=== PATIENT | female | born 1990 | race Caucasian/White ===

== ENCOUNTER 2016-06-13 07:23 | Inpatient (IN) | payer BC, OTHER ==
[~2016-06-13] VITALS: Ht 160 cm; Wt 54.4 kg
[2016-06-13 11:32] VITALS: BP 110/68
--- NOTE | 2016-06-13 12:00 | NUR ---
ADMISSION Admitted a 25 year old female from [place], patient arrived to unit at 1100, body search conducted by female PHOTOGRAM[employer]RY [employer], no contraband found, skin assessment completed, noted with multiple scratch miller on face, has track miller on bilateral arms, also noted with small bruise on left forearm and small bruise on left thigh. Picture taken of face multiple scratch miller and placed in chart. Patient was oriented to unit and to room, educated regarding call light use with good verbal understanding. safety measures in place. Patient did not bring any home medications and denies taking any prescription medications. Reports no allergies to drug or food. Patient reports substance use of: 1. heroin IV 1 gram daily for one month, patient reports has been using heroin for one month, last used 1 gram 06/11/2016. 2. Methamphetamine IV 1 gram daily for one month, patient reports has been using methamphetamine since the age of 22, last used 1 gram on 06/11/2016. 3. Marijuana, reports occasionally smokes marijuana unknown amount since the age of 22, per patient cannot recall last time she smoked marijuana. Patient reports past medical history of: DX: schizophrenia per patient was diagnosed at the age of 14, but does not take any medications for schizophrenia. DX: Bipolar disorder per patient was diagnosed at the age of 14 but does not take any medications for bipolar d/o. Patient also reported to commit suicide at the age of 19 reports she took many pills currently denies any suicide ideations, thoughts or plans. Per patient wants to become sober and "get my life back" Patient reports she does not have a psychiatrist or psychologist or primary care physician. Reports last time she saw a psychiatrist was at her previous treatment center, but cannot recall if she was prescribed any medications for diagnosed d/o. Patient reports treatment history of: [facility] in [place] for one month in June 2015, [facility] in [place] for one month from july-August 2015 and [facility] in [place] for six months from September-February 2016, patient reports she was sober for 4 months, and relapsed one month ago. Patient reports family substance abuse of: uncle was an "alcoholic" Patient vital signs upon admission: bp: 110/68 p: 71 t: 98.0 r: 16 o2 sat: 99% room air. Patient presenting with: dilated pupils and c/o chills with cow score of: 2. Is alert and oriented x4, noted labile. requires frequent reassurance. Patients pupils are equal and reactive to light, 3mm. Patients abdomen is soft and non distended. no episodes of N/V/D noted, bowel sounds heard in all quadrants. respirations are even and unlabored, no sob, lungs clear upon auscultation. safety measures in lace. call light with in reach, denies any history of seizures. patient was seen and examined by Dr. greene with admitting orders, will continue under close observation and will monitor closely s/sx of withdrawal. Dr. Pineda was notified of admission, and will see assess patient, will continue to monitor.
[2016-06-13] MEDS ORDERED: MAGNESIUM HYDROXIDE 30 ML LIQUID UDC PO PRN (12:30)
[2016-06-13] MEDS ORDERED: BUPRENORPHINE HCL 2 MG TAB.SUBL SL PRN (12:30)
[2016-06-13] MEDS ORDERED: MAG HYDROX/AL HYDROX/SIMETH 30 ML LIQUID UDC PO PRN (12:30)
[2016-06-13] MEDS ORDERED: ONDANSETRON 4 MG/2 ML VIAL IM PRN (12:30)
[2016-06-13] MEDS ORDERED: ACETAMINOPHEN 325 MG TABLET PO PRN (12:30)
[2016-06-13] MEDS ORDERED: diphenhydrAMINE 50 MG CAPSULE PO PRN (12:30)
[2016-06-13] MEDS ORDERED: LOPERAMIDE HCL 2 MG CAPSULE PO PRN ×2 (12:30)
[2016-06-13] MEDS ORDERED: CLONIDINE HCL 0.1 MG TABLET PO PRN (12:30)
[2016-06-13] MEDS ORDERED: MIRALAX 17 GM POWD.PACK PO PRN (12:30)
[2016-06-13] MEDS ORDERED: ONDANSETRON ODT 4 MG TAB.RAPDIS SL PRN (12:30)
[2016-06-13] MEDS ORDERED: DICYCLOMINE HCL 20 MG TABLET PO PRN (12:30)
[2016-06-13 13:46] VITALS: BP 103/62
[2016-06-13 13:46] LABS: *URINE HCG, QUAL NEG (NEGATIVE)
[2016-06-13 14:01] LABS: *AMPHETAMINE, URINE POSITIVE (NEGATIVE); *BARBITURATE, URINE NEGATIVE (NEGATIVE); *CANNABINOID, URINE POSITIVE (NEGATIVE); *COCCAINE, URINE NEGATIVE (NEGATIVE); *OPIATE, URINE POSITIVE (NEGATIVE); *PHENCYCLIDINE SCREEN,URINE NEGATIVE (NEGATIVE)
[2016-06-13] MEDS: IBUPROFEN 600 MG TABLET PO PRN (14:22)
[2016-06-13] MEDS: HYDROXYZINE PAMOATE 25 MG CAPSULE PO PRN (14:22)
--- NOTE | 2016-06-13 14:22 | NUR ---
PRN VISTARIL/MOTRIN Patient c/o ear ache to bilateral ears 08/14 administered Motrin as ordered, will monitor effectiveness. patient c/o increase in anxiety, provided with non pharmacological intervention with no relief, administered Vistaril as ordered, will monitor effectiveness of medication
[2016-06-13 14:52] LABS: ALANINE AMINOTRANSFERASE 44 U/L (14-59); ALBUMIN 3.1 g/dL (3.4-5.0); ALKALINE PHOSPHATASE 78 U/L (50-136); ASPARTATE AMINOTRANSFERASE 31 U/L (15-37); BASOPHILS % (AUTO) 0.3 % (0.0-2.0); BILIRUBIN,TOTAL 0.3 mg/dL (0.2-1.0); CALCIUM 8.4 mg/dL (8.5-10.1); CARBON DIOXIDE 28 mmol/L (21-32); CHLORIDE 106 mmol/L (98-107); CREATININE 0.9 mg/dL (0.6-1.3); EOSINOPHILS # (AUTO) 0.1 K/uL (0.0-0.7); EOSINOPHILS % (AUTO) 1.1 % (0.0-7.0); GFR 77 mL/min (>60); GLUCOSE 119 mg/dL (74-106); HEMATOCRIT 39.5 % (37.0-47.0); HEMOGLOBIN 13.6 g/dL (12.0-16.0); LYMPHOCYTES # (AUTO) 1.7 K/uL (0.8-4.8); LYMPHOCYTES % (AUTO) 26.1 % (20.5-51.5); MEAN CORPUSCULAR HEMOGLOBIN 28.6 uug (27.0-31.0); MEAN CORPUSCULAR HGB CONC 34 g/dL (32.0-37.0); MEAN CORPUSCULAR VOLUME 83.2 fL (81.0-99.0); MONOCYTES # (AUTO) 0.9 K/uL (0.1-1.30); MONOCYTES % (AUTO) 14.4 % (0.0-11.0); NEUTROPHILS # (AUTO) 3.9 K/uL (1.8-8.9); NEUTROPHILS % (AUTO) 58.1 % (38.5-71.5); PLATELET COUNT (AUTO) 242 K/uL (150-450); RED BLOOD CELL COUNT(AUTO) 4.75 MIL/uL (4.20-5.40); RED CELL DISTRIBUTION WIDTH 13.4 % (11.5-14.5); SODIUM SERUM 144 mmol/L (136-145); TOTAL PROTEIN, SERUM 6.7 g/dL (6.4-8.2); UREA NITROGEN, BLOOD 6 mg/dL (7-18); WHITE BLOOD COUNT (AUTO) 6.6 K/uL (4.0-11.2)
[2016-06-13 15:05] LABS: ETHANOL < 3 MG/DL (0-0)
[2016-06-13] MEDS ORDERED: POTASSIUM CHLORIDE 20 MEQ TAB.PRT.SR PO ONE (15:15)
--- NOTE | 2016-06-13 15:22 | NUR ---
MOTRIN/VISTARIL REASSESSMENT Patient reports Motrin effective decrease in pain, current pain level 2/10, tolerable as per patient. Vistaril effective patient reports feeling less anxious, will continue ot monitor closely.
[2016-06-13 15:57] LABS: HIV-1 p24 ANTIGEN NON REACTIVE (NONREACTIVE); HIV-1/2 ANTIBODY NON REACTIVE (NONREACTIVE)
[2016-06-13 16:55] VITALS: BP 112/70
--- NOTE | 2016-06-13 16:56 | NUR ---
PRN SUBUTEX Patient presented with: observable moist, yawning, dilated pupils, mild bone and joint aches, moist eyes, mild anxiety and goosebump with cow score of: 12, administered Subutex 4mg sl as ordered, will monitor effectiveness.
--- NOTE | 2016-06-13 17:26 | NUR ---
SUBUTEX REASSESSMENT Patient presented with decrease in cow score from 12 to 10, presenting with: c/o chills, dilated pupils, mild bone and joint aches, moist eyes, mild anxiety, and goosebump with cow score of: 10. will continue to monitor. MD notified PRN Subutex was administered.
--- NOTE | 2016-06-13 19:16 | NUR ---
END OF SHIFT Patient alert and oriented x4, Patients vital signs were with in normal limits during shift. Patient with admitting Dx: opiate/methamphetamine dependence and continues under close observation currently with no ongoing taper continues on PRN medications for s/sx of withdrawal. Administered one time dose of Subutex 4mg sl at 1656 for cow score of: 12. Also administered PRN Motrin and PRN Vistaril as ordered, medications were effective. 1300 assessment patient presented c/o chills, difficulty sitting still, dilated pupils, mild bone and joint aches, moist eyes, mild anxiety and goosebump with cow score of: 10; 1700 assessment patient presented with: observable moist on face, yawning, difficulty sitting still, dilated pupils, mild bone and joint aches, moist eyes, mild anxiety and goosebump with cow score of: 12. Patient encouraged adequate PO fluid intake as tolerated. Encouraged to attend group therapies/sessions to learn new coping skills to prevent relapse, Denies SI/HI. Safety measures in place. call light kept with in reach, will continue to monitor closely. Patient endorsed to second shift supervisor nurse, all pertinent information discussed.
[2016-06-13 20:00] VITALS: BP 107/48
[2016-06-13] MEDS ORDERED: BUPRENORPHINE HCL 2 MG TAB.SUBL SL SCH (20:00)
--- NOTE | 2016-06-13 20:00 | NUR ---
Start of Shift Patient is a 25-year old, female, admitted for Heroin Dependence. For the last month, patent reports using 1 gram of tar heroin via IV daily. Pt also reports using meth salts, cannabis and binge drinks ETOH intermittently. No history of seizures reported. Pt is AAOx4 and noted to be emotional with bouts of crying. Provided teachings and reassurance. No SOB noted. With facial scabs due to scratching per pt. no bleeding noted. Provided skin care. Pt is ambulatory with steady gait. Fall, universal and safety prec implemented. Call light within reach. Kept pt warm, dry and comfortable. Latest COWS=9. Will monitor.
[2016-06-13] MEDS: LACTOBACILLUS RHAMNOSUS GG 1 EACH CAPSULE PO SCH (20:57)
[2016-06-13] MEDS: AMOXICILLIN TRIHYDRATE 500 MG CAPSULE PO SCH (21:01)
[2016-06-14] VITALS: BP 99/50
[2016-06-14 04:00] VITALS: BP 104/56
[2016-06-14] MEDS: AMOXICILLIN TRIHYDRATE 500 MG CAPSULE PO SCH ×3 (06:35→21:14)
--- NOTE | 2016-06-14 07:05 | NUR ---
End of Shift Patient is a 25-year old, female, admitted for Heroin Dependence. For the last month, patent reports using 1 gram of tar heroin via IV daily. Pt also reports using meth salts, cannabis and binge drinks ETOH intermittently. No history of seizures reported. Pt is AAOx4 and noted to be emotional with bouts of crying. Provided teachings and reassurance. No SOB noted. With facial scabs due to scratching per pt. no bleeding noted. Provided skin care. Pt is ambulatory with steady gait. Fall, universal and safety prec implemented. Call light within reach. Kept pt warm, dry and comfortable. Latest COWS=9, slept for 10 hours. Endorsed to AM shift nurse for continuity of care.
[2016-06-14 08:00] VITALS: BP 108/80
--- NOTE | 2016-06-14 08:00 | NUR ---
START OF SHIFT NOTE Received report from night nurse. 25 year old female admitted for heroin, methamphetamine, and marijuana. Pt reports past medical hx of bipolar d/o, schizophrenia, and suicide attempt at age 19. Pt has hx of multiple detox. Pt placed on 5 day Subutex taper. Pt has scratch miller on her face. Skin intact to the site no s/s of infection. Pt did not receive any PRN per night nurse.Last COWS 9. Pt slept for 10 hours. Upon assessment, pt reported anxiety, body aches, stomach cramps. Will provide safe and supportive environment. Safety measures in place. Call light in reach.
[2016-06-14] MEDS ORDERED: TUBERCULIN,PURIF.PROT.DERIV. 5 TU/0.1 ML TEST ID ONE (09:00)
[2016-06-14 09:06] LABS: CALCIUM 8.5 mg/dL (8.5-10.1); CREATININE 0.8 mg/dL (0.6-1.3); PHOSPHOROUS 3.7 mg/dL (2.5-4.9); POTASSIUM 3.7 mmol/L (3.5-5.1)
[2016-06-14] MEDS: MULTIVITAMINS,THERAPEUTIC TABLET PO SCH (09:06)
[2016-06-14] MEDS: LACTOBACILLUS RHAMNOSUS GG 1 EACH CAPSULE PO SCH ×2 (09:06→21:14)
[2016-06-14] MEDS: BUPRENORPHINE HCL 2 MG TAB.SUBL SL SCH ×3 (09:07→21:14)
[2016-06-14] MEDS: NEOMY/BACITRAC/POLYMI OINT 28.35 GM TUBE TOP SCH ×2 (09:07→16:47)
[2016-06-14] MEDS: NEOMY/POLYMYX B/HC OTIC SUSP 10 ML BOTTLE EACH EAR SCH ×2 (09:08→16:47)
[2016-06-14 12:00] VITALS: BP 102/60
[2016-06-14] MEDS ORDERED: MIN OIL TOP PRN (13:00)
[2016-06-14] MEDS ORDERED: GLY TOP PRN (13:00)
[2016-06-14] MEDS ORDERED: [UNRECOGNIZED DRUG - OTHER] TOP PRN (13:00)
[2016-06-14] MEDS ORDERED: WATER TOP PRN (13:00)
--- NOTE | 2016-06-14 14:26 | NUR ---
REFUSED MED Pt refused her scheduled Subutex 4 mg, cows noted 6. Offered x3 risk and benefits explained. Pt states "I am feeling better". aware. Safety measures in place, Call light within reach. Will cont to monitor.
[2016-06-14] MEDS ORDERED: MINERAL OIL/PETROLATUM,WHITE 57 GM TUBE TOP PRN (14:30)
[2016-06-14 16:00] VITALS: BP 100/55
--- NOTE | 2016-06-14 19:12 | NUR ---
END OF SHIFT NOTE Pt is alert awake oriented x4 in stable condition. Pt admitted with diagnosis of Opioid/ Methamphetamine Pt started on 5 days Subutex taper COWS noted 11, tolerated well. Pt refused her Scheduled Subutex at 1426 COWS score noted-6. Pt cont with Po antibiotic for Otitis media no s/s of adverse reaction noted. Pt also cont with Triple atb for face scratch miller. Pt did not received any PRN medication during shift. Pt preferred to stayed in her room, Educate the pt to attend groups and activities to learn new coping skills to prevent relapse with good verbal understanding. Last COWS-6. Pt's total intake of [id number] voided x2 with x2 stool. Safety measures in place, call light within reach. Pt endorsed to night nurse in stable condition.
--- NOTE | 2016-06-14 19:14 | NUR ---
Start of shift note Received report from day shift nurse. Pt is a 25 yo female, A+Ox4, presenting to [facility] for Opiate/Meth/Marijuana dependence. Pt has NKA, is Full Code status, and on Regular diet. Pt is on Fall precautions. Pt has HX of Bipolar disorder, Schizophrenia, and past Suicide attempt. Pt is on 5 day Subutex taper, tolerated well. No s/s of distress noted at this time. Respirations even and unlabored. Will continue to monitor.
[2016-06-14 20:19] VITALS: BP 116/63
[2016-06-15 00:58] VITALS: BP 112/57
[2016-06-15 04:09] VITALS: BP 112/63
[2016-06-15] MEDS: AMOXICILLIN TRIHYDRATE 500 MG CAPSULE PO SCH ×3 (06:52→21:59)
[2016-06-15] MEDS: IBUPROFEN 600 MG TABLET PO PRN (06:55)
--- NOTE | 2016-06-15 06:55 | NUR ---
PRN Motrin PT c/o ear ache and requested for PRN Motrin. Medication given and tolerated well. Will reassess within 1 HR. Will continue to monitor.
--- NOTE | 2016-06-15 07:12 | NUR ---
End of shift note Pt is a 25 yo female, A+Ox4, presenting to [facility] for Opiate/Meth/Marijuana dependence. Pt has NKA, is Full Code status, and on Regular diet. Pt is on Fall precautions. Pt has HX of Bipolar disorder, Schizophrenia, and past Suicide attempt. Pt is on 5 day Subutex taper, tolerated well. Pt slept for a total of 7 HRS. Last COWS: 3 @0400. No s/s of distress noted at this time. Respirations even and unlabored. Will endorse to day shift nurse.
[2016-06-15 07:46] LABS: CALCIUM 8.4 mg/dL (8.5-10.1); CREATININE 0.8 mg/dL (0.6-1.3); MAGNESIUM 1.9 mg/dL (1.8-2.4); PHOSPHOROUS 4.5 mg/dL (2.5-4.9); POTASSIUM 3.8 mmol/L (3.5-5.1)
--- NOTE | 2016-06-15 08:00 | NUR ---
START OF SHIFT Pt 25 y/o female admitted for opioid and methamphetamine dependence. Pt received in room on bed with eyes closed resting, but easily arousable to name. Pt alert and oriented to name, place, and time. PErrla. Skin warm and slightly moist to touch. Respirations even and unlabored. Bilateral hand tremors noted slightly. It was reported that pt slept for 7 hours last night. Bed on lowest position with side rails x2 up for safety. Call light within reach. No distress noted at this time.
[2016-06-15 08:09] LABS: THYROID STIMULATING HORMONE 4.36 mIU/mL (0.358-3.740)
[2016-06-15 09:00] VITALS: BP 106/49
[2016-06-15] MEDS ORDERED: BUPRENORPHINE HCL 2 MG TAB.SUBL SL SCH (09:00)
[2016-06-15] MEDS: NEOMY/POLYMYX B/HC OTIC SUSP 10 ML BOTTLE EACH EAR SCH ×2 (09:00→17:51)
--- NOTE | 2016-06-15 09:30 | NUR ---
LABS: PHOSPH=8.4 and TSH=4.360. Dr. Mcrae aware.
[2016-06-15] MEDS: LACTOBACILLUS RHAMNOSUS GG 1 EACH CAPSULE PO SCH ×2 (10:24→21:59)
[2016-06-15] MEDS: NEOMY/BACITRAC/POLYMI OINT 28.35 GM TUBE TOP SCH ×2 (10:24→17:51)
[2016-06-15] MEDS: MULTIVITAMINS,THERAPEUTIC TABLET PO SCH (10:24)
[2016-06-15] MEDS: ESCITALOPRAM OXALATE 10 MG TABLET PO SCH (13:13)
[2016-06-15 13:20] LABS: HCV AB <0.1 s/co ratio (0.0-0.9); HEPATITIS B CORE AB, IgM Negative (Negative); HEPATITIS B SURFACE AG Negative (Negative)
[2016-06-15] MEDS: HYDROXYZINE PAMOATE 25 MG CAPSULE PO PRN (13:24)
[2016-06-15] MEDS: BUPRENORPHINE HCL 2 MG TAB.SUBL SL SCH ×2 (14:39→21:59)
[2016-06-15] MEDS: GABAPENTIN 300 MG CAPSULE PO SCH ×2 (14:39→21:59)
[2016-06-15] MEDS: CLONIDINE HCL 0.1 MG TABLET PO SCH ×2 (14:39→21:00)
[2016-06-15] MEDS: FLUTICASONE PROP NASAL SPRAY 16 GM BOTTLE NS SCH (14:44)
[2016-06-15 16:00] VITALS: BP 100/58
--- NOTE | 2016-06-15 19:38 | NUR ---
END OF SHIFT Pt 25 y/o female admitted for opioid and methamphetamine dependence. Pt alert and oriented to name, place, and time. Perrla. Skin warm and slightly moist to touch. Respirations even and unlabored. Bilateral hand tremors noted slightly. Pt observed isolative to room all day today. Pt medication compliant and tolerated well. No ASe noted. Bed on lowest position with side rails x2 up for safety. Call light within reach. No distress noted at this time.
--- NOTE | 2016-06-15 19:50 | NUR ---
START OF SHIFT Received report from day shift nurse. Pt is lying in bed resting. She is a 25 yo female admitted to [facility] on 06/13 for opiate and methamphetamine dependence. She is A&O x4 and ambulatory. NKA, full code, and on a regular diet. She has a PMH of bipolar, schizophrenia, and suicide attempt at age 19. On admission she admitted to using heroin IV 1 gram per day for one month, methamphetamine IV 1 gram per day for one month, and marijuana occasionally. Pt started a 5 day subutex taper on 06/13. She is noted with flushed, moist skin, and dilated pupils. She reports feeling anxious and having body aches. Pt denies SI/HI. Fall precautions in place. Bed is down with call light in reach.
[2016-06-15 20:00] VITALS: BP 105/58
[2016-06-16] VITALS: BP 106/49
[2016-06-16 04:00] VITALS: BP 101/42
[2016-06-16] MEDS: AMOXICILLIN TRIHYDRATE 500 MG CAPSULE PO SCH ×3 (06:47→21:41)
--- NOTE | 2016-06-16 07:17 | NUR ---
END OF SHIFT Report provided to day shift nurse. Pt is lying in bed resting. She is a 25 yo female admitted to [facility] on 06/13 for opiate and methamphetamine dependence. She is A&O x4 and ambulatory. NKA, full code, and on a regular diet. She has a PMH of bipolar, schizophrenia, and suicide attempt at age 19. On admission she admitted to using heroin IV 1 gram per day for one month, methamphetamine IV 1 gram per day for one month, and marijuana occasionally. Subutex taper started on 06/13 is working well to manage withdrawal symptoms. She is ordered abx for an ear infection. No PRN medications administered. Last COWS was 4. She drank 850mL and slept for 8 hours. Fall precautions in place. Bed is down with call light in reach.
[2016-06-16 08:00] VITALS: BP 106/64
--- NOTE | 2016-06-16 08:00 | NUR ---
START OF SHIFT Received report from shift supervisor rn nurse. Patient is laying in bed resting. Patient is 25 year old female admitted to 06/13/16 for heroine and methamphetamine dependence. Alert and oriented x4, ambulatory with steady gait, denies SOB, chest pain, multiple healing wounds on face, with pinkish color, scabs off. Pathient is full code, NKA, regular diet. Has a history of bipolar and schizophrenia, denies SI/HI. Pt on a 5 day subutex taper. Patient's COWS at this time is 11. Patient has large pupils, reports body aches, anxiety, teary eyes, restleness and goosebumps. Scheduled subutex this AM administered. On fall precautions. Bed is down with call light in reach. Med compliant, prn Robaxin po given for 7/10 R hand pain with mild swelling noted, pt. able to move all extremities. TB read on RFA today, negative result noted.
[2016-06-16] MEDS: LACTOBACILLUS RHAMNOSUS GG 1 EACH CAPSULE PO SCH ×2 (09:13→21:41)
[2016-06-16] MEDS: ESCITALOPRAM OXALATE 10 MG TABLET PO SCH (09:13)
[2016-06-16] MEDS: BUPRENORPHINE HCL 2 MG TAB.SUBL SL SCH ×3 (09:13→21:41)
[2016-06-16] MEDS: GABAPENTIN 300 MG CAPSULE PO SCH ×3 (09:13→21:41)
[2016-06-16] MEDS: MULTIVITAMINS,THERAPEUTIC TABLET PO SCH (09:14)
[2016-06-16] MEDS: CLONIDINE HCL 0.1 MG TABLET PO SCH ×3 (09:15→21:00)
[2016-06-16] MEDS: NEOMY/BACITRAC/POLYMI OINT 28.35 GM TUBE TOP SCH ×2 (09:15→17:13)
[2016-06-16] MEDS: FLUTICASONE PROP NASAL SPRAY 16 GM BOTTLE NS SCH (09:16)
[2016-06-16] MEDS: NEOMY/POLYMYX B/HC OTIC SUSP 10 ML BOTTLE EACH EAR SCH ×2 (09:16→17:13)
[2016-06-16] MEDS: METHOCARBAMOL 750 MG TABLET PO PRN (09:36)
--- NOTE | 2016-06-16 09:36 | NUR ---
PRN ROBAXIN Patient c/o R hand pain and mild swelling, pain 7/10. Patient able to move extremities. PRN Robaxin adminsitered. Will continue to monitor patient. Will notify MD about the R hand.
--- NOTE | 2016-06-16 10:30 | NUR ---
MILTON MURPHY Patient reports pain in R hand decreased to 06/14, milton Murphy effective. Addendum: 06/16/16 at 1513 by JOSE GALICIA RN REASSESSMENT NOTE
[2016-06-16 12:00] VITALS: BP 101/56
[2016-06-16] MEDS: CARBAMIDE PEROXIDE OTIC DROP 15 ML BOTTLE EACH EAR SCH ×2 (14:41→21:40)
[2016-06-16] MEDS: BACLOFEN 10 MG TABLET PO SCH ×2 (14:53→21:41)
[2016-06-16 16:00] VITALS: BP 110/80
[2016-06-16] MEDS: IBUPROFEN 600 MG TABLET PO PRN (18:07)
--- NOTE | 2016-06-16 18:10 | NUR ---
PRN MOTRIN Patient complains of R hand pain 6/10, achy, prn motrin po provided. will continue to monitor patient.
--- NOTE | 2016-06-16 19:10 | NUR ---
REASSESSMENT Patient's pain level on R hand is now 3/10, reports decreased pain. PRN motrin is effective.
--- NOTE | 2016-06-16 19:11 | NUR ---
END OF SHIFT Patient is 25 year old female admitted to 06/13/16 for heroine and methamphetamine dependence. Alert and oriented x4, ambulatory with steady gait, denies SOB, chest pain. Has a history of bipolar and schizophrenia, denies SI/HI. Patient is full code, NKA, regular diet. Multiple healing wounds on face, with pinkish color, scabs off, photo taken and placed in chart. Pt on 5-day subutex taper. Recent COWS is 3, c/o of sweating, dilated pupils and teary eyes. Pain level is 6/10 on R hand, ibuprofen po administered, effective. BM X1. Encouraged patient to hydrate with po fluids, tolerating meals and snacks. Fall precaution in place. Bed at lowest setting. Call light within in reach. TB result read today from RFA, negative result. All needs met. machinist job setterboiler service technician will continue to monitor patient.
--- NOTE | 2016-06-16 19:50 | NUR ---
START OF SHIFT Received report from day shift nurse. Pt is lying in bed resting. She is a 25 yo female admitted to [facility] on 06/13 for opiate and methamphetamine dependence. She is A&O x4 and ambulatory. NKA, full code, and on a regular diet. She has a PMH of bipolar, schizophrenia, and suicide attempt at age 19. Pt denies SI/HI. On admission she admitted to using heroin IV 1 gram per day for one month, methamphetamine IV 1 gram per day for one month, and marijuana occasionally. She is ordered abx for ear infection and debrox for cerumen build up. Pt has healing abrasions on the face with triple antibiotic ordered.. No s/s of infection. She has nasal stuffiness, dilated pupils, and reports feeling anxious. Pt started a 5 day subutex taper on 06/13. Fall precautions in place. Bed is down with call light in reach.
[2016-06-16 20:00] VITALS: BP 109/57
[2016-06-17] VITALS: BP 111/58
--- NOTE | 2016-06-17 04:00 | NUR ---
0400 Vitals deferred Pt refused to be woken for 0400 vitals. Respirations even and unlabored. Bed is down with call light in reach.
[2016-06-17] MEDS: AMOXICILLIN TRIHYDRATE 500 MG CAPSULE PO SCH ×3 (06:58→22:04)
--- NOTE | 2016-06-17 07:20 | NUR ---
END OF SHIFT Report provided to day shift nurse. Pt is in her room getting ready for the day. She is a 25 yo female admitted to [facility] on 06/13 for opiate and methamphetamine dependence. She is A&O x4 and ambulatory. NKA, full code, and on a regular diet. She has a PMH of bipolar, schizophrenia, and suicide attempt at age 19. Pt denies SI/HI. On admission she admitted to using heroin IV 1 gram per day for one month, methamphetamine IV 1 gram per day for one month, and marijuana occasionally. Pt started a 5 day subutex taper on 06/13. No PRN medications administered. Last COWS was 4. She drank 500mL and slept for 6 hours. Fall precautions in place. Bed is down with call light in reach.
--- NOTE | 2016-06-17 07:25 | NUR ---
Start of shift note Pt was admitted for opiate dependence. Pt has a PMH of bipolar d/o, schizophrenia and SI at the age of 19. Pt is on a 5 day subutex taper. Pt is pacing her room, pt states that she didn't sleep well during the night and that she is exhausted. Will administer her medications per MD order and monitor pt. All other needs addressed at this time.
[2016-06-17 08:00] VITALS: BP 106/74
--- NOTE | 2016-06-17 08:15 | NUR ---
PRN administration Pt c/o pain 3/10 in right hand. Administered PRN motrin per MD order. Will continue to monitor pt. All other needs addressed at this time.
[2016-06-17] MEDS: NEOMY/POLYMYX B/HC OTIC SUSP 10 ML BOTTLE EACH EAR SCH ×2 (08:21→17:38)
[2016-06-17] MEDS: ESCITALOPRAM OXALATE 10 MG TABLET PO SCH (08:24)
[2016-06-17] MEDS: BACLOFEN 10 MG TABLET PO SCH (08:24)
[2016-06-17] MEDS: BUPRENORPHINE HCL 2 MG TAB.SUBL SL SCH ×2 (08:24→22:04)
[2016-06-17] MEDS: IBUPROFEN 600 MG TABLET PO PRN ×2 (08:24→22:17)
[2016-06-17] MEDS: CLONIDINE HCL 0.1 MG TABLET PO SCH ×3 (08:24→22:04)
[2016-06-17] MEDS: GABAPENTIN 300 MG CAPSULE PO SCH ×3 (08:25→22:04)
[2016-06-17] MEDS: LACTOBACILLUS RHAMNOSUS GG 1 EACH CAPSULE PO SCH ×2 (08:25→22:04)
[2016-06-17] MEDS: MULTIVITAMINS,THERAPEUTIC TABLET PO SCH (08:25)
[2016-06-17] MEDS: NEOMY/BACITRAC/POLYMI OINT 28.35 GM TUBE TOP SCH ×2 (08:25→17:38)
[2016-06-17] MEDS: FLUTICASONE PROP NASAL SPRAY 16 GM BOTTLE NS SCH (08:26)
[2016-06-17] MEDS: CARBAMIDE PEROXIDE OTIC DROP 15 ML BOTTLE EACH EAR SCH ×2 (08:26→22:06)
--- NOTE | 2016-06-17 09:15 | NUR ---
Reassessment pt states that the motrin was effective in reducing her pain to a level of 1/10. Pt states that she is comfortable. Will continue to monitor pt.
[2016-06-17 12:00] VITALS: BP 104/60
[2016-06-17] MEDS ORDERED: BACLOFEN 10 MG TABLET PO SCH (15:00)
[2016-06-17] MEDS: BACLOFEN 20 MG TABLET PO SCH ×2 (15:39→22:04)
[2016-06-17 16:00] VITALS: BP 112/58
[2016-06-17] MEDS ORDERED: TRAZODONE 50 MG TABLET PO PRN (16:15)
--- NOTE | 2016-06-17 18:42 | NUR ---
End of shift note Pt was admitted for opiate dependence. Pt has an active ear infection in which she is receiving oral atb and atb ear drops. Pt has a recent COWS of 4 at 1600. Pt is tolerating her subutex taper well without any ASE. Pt had one PRN medication during the shift to manage her pain with effectiveness. Pt attempted to participate in groups and other activities during the shift. Pt is compliant with care. All other needs addressed at this time. Will continue to monitor pt and endorse SBAR to oncoming shift.
--- NOTE | 2016-06-17 19:30 | NUR ---
START OF SHIFT NOTE: Patient is a 25 y/o female admitted on 06/13/16 for Opiate dependence. Patient reported using Heroin IV 1 gram daily for 1 month, Meth 1 gram for 1 month and smokes Marijuana occasionally. Patient with medical history of Bipolar disorder, Schizophrenia, Suicide attempt at age 19 and Ear infection. Fall precaution noted. Patient is on a regular diet with no known food and drug allergies. Full Code status. Patient is on a 5-day Subutex taper and tolerating well. Scratch miller noted on face. Last COWS is 4. Pt was given PRN Motrin during day shift. Patient is alert & oriented x4. No shortness of breath noted. Respiration even & unlabored. Abdomen soft & non-distended. Bowel sounds active in all four quadrants. Pt complains of 4/10 body aches, nausea, sweating and chills. No bilateral hand tremors noted. No hallucinations. Safety precautions are in place. Bed locked in lowest position. Both side rails up. Call light within pts reach. Will continue to monitor.
[2016-06-17 20:00] VITALS: BP 122/65
--- NOTE | 2016-06-17 22:17 | NUR ---
PRN Motrin & Zofran Patient complains of 4/10 body aches and nausea. No episode of vomiting noted. Pt noted with restlessness. PRN Motrin & Zofran given as ordered. Will continue to monitor patient.
--- NOTE | 2016-06-17 23:17 | NUR ---
PRN Reassessment Patient verbalized relief from body aches and improved nausea. PRN medication effective. Will continue to monitor patient.
[2016-06-18] VITALS: BP 103/58
[2016-06-18 04:00] VITALS: BP 102/56
[2016-06-18] MEDS: AMOXICILLIN TRIHYDRATE 500 MG CAPSULE PO SCH ×2 (06:31→14:32)
--- NOTE | 2016-06-18 07:39 | NUR ---
END OF SHIFT NOTE: Patient is a 25 y/o female admitted on 06/13/16 for Opiate dependence. Patient reported using Heroin IV 1 gram daily for 1 month, Meth 1 gram for 1 month and smokes Marijuana occasionally. Patient with medical history of Bipolar disorder, Schizophrenia, Suicide attempt at age 19 and Ear infection. Fall precaution noted. Patient is on a regular diet with no known food and drug allergies. Full Code status. Patient is on a 5-day Subutex taper and tolerating well. Scratch miller noted on face. Last COWS is 6. Pt was given PRN Motrin & Zofran during my shift. Pt is stable and vitals WNL. Pt slept for a total of 6 hours. Pt consumed 775ml of fluids. Voided 1x with no bowel movement. All needs attended & met. Safety precautions are in place. Will endorse pt to day shift nurse.
--- NOTE | 2016-06-18 07:50 | NUR ---
START OF SHIFT Rcvd client in room, she is A/O x 4, she presents with irritable mood, flat affect, she reports anxiety, fatigue, and leg restlessness, flushed face and being very emotional. Encouraged increased fluids as tolerated. Encouraged group therapy attendance. Per night warehouse selector nurse, client is a 25 year old female admitted for withdrawal from heroin. She completed 5 day Subutex taper tolerated well. Last COWS 6 @ 2000, She had PRN Motrin for gereralized body aches and Zofran for nausea noted effective. She slept 6 hrs. She reports PMH Bipolar disorder, unspecified, Schizophrenia, unspecified, History of suicide attempt, unspecified, Opioid use disorder, Stimulant use disorder, Cannabis use disorder, Alcohol use disorder, Acute otitis media on antibiotic therapy Debrox 5 drops to each ear, Trimox 500mg cap PO Q8H, tolerating well. Client denies any induced-seizure withdrawal. She is full code, regular diet, NKA. Client is on universal precautions. Side rails up/padded x 2, call light within reach, bed locked in lowest positions. Will continue with plan of care
[2016-06-18 08:00] VITALS: BP 103/64
[2016-06-18] MEDS ORDERED: BUPRENORPHINE HCL 2 MG TAB.SUBL SL SCH (09:00)
[2016-06-18] MEDS: CARBAMIDE PEROXIDE OTIC DROP 15 ML BOTTLE EACH EAR SCH ×2 (09:23→21:15)
[2016-06-18] MEDS: ESCITALOPRAM OXALATE 10 MG TABLET PO SCH (09:24)
[2016-06-18] MEDS: MULTIVITAMINS,THERAPEUTIC TABLET PO SCH (09:24)
[2016-06-18] MEDS: BACLOFEN 20 MG TABLET PO SCH ×3 (09:24→21:15)
[2016-06-18] MEDS: CLONIDINE HCL 0.1 MG TABLET PO SCH ×3 (09:24→21:16)
[2016-06-18] MEDS: LACTOBACILLUS RHAMNOSUS GG 1 EACH CAPSULE PO SCH ×2 (09:24→21:16)
[2016-06-18] MEDS: GABAPENTIN 300 MG CAPSULE PO SCH ×3 (09:25→21:15)
[2016-06-18] MEDS: NEOMY/BACITRAC/POLYMI OINT 28.35 GM TUBE TOP SCH ×2 (09:25→16:38)
[2016-06-18] MEDS: FLUTICASONE PROP NASAL SPRAY 16 GM BOTTLE NS SCH (09:26)
[2016-06-18] MEDS: NEOMY/POLYMYX B/HC OTIC SUSP 10 ML BOTTLE EACH EAR SCH ×2 (09:27→16:39)
[2016-06-18] MEDS ORDERED: TRAZODONE 100 MG TABLET PO PRN (09:45)
[2016-06-18] MEDS ORDERED: TRAZODONE 50 MG TABLET PO PRN (09:45)
[2016-06-18 12:00] VITALS: BP 99/61
[2016-06-18] MEDS ORDERED: DICY20TA28 PO (12:21)
[2016-06-18] MEDS ORDERED: ESCI10TA PO (12:21)
[2016-06-18] MEDS ORDERED: Trazodone Hcl PO (12:21)
[2016-06-18] MEDS ORDERED: HYDR-3895 PO (12:21)
[2016-06-18] MEDS ORDERED: Ibuprofen PO (12:21)
[2016-06-18] MEDS ORDERED: Gabapentin PO ×2 (12:21)
[2016-06-18] MEDS ORDERED: CLON0.1T14 PO (12:21)
[2016-06-18] MEDS ORDERED: Baclofen PO (12:21)
--- NOTE | 2016-06-18 15:10 | NUR ---
Continuation of Care Patient Received. Patient is in her room, sleeping. Breathing even and non labored. No signs of pain or discomfort noted. Patient is a 25 year old female, admitted on 06/13/16 for Opiate Dependence. Patient received a 5 day Subutex taper that has completed. Patient verbalizes no known allergies, wishes to be full code, following a regular diet, placed on fall precautions. Patients skin noted with a small abrasion to the left forehead with ongoing treatment of ATB BID. Patient also receiving ATB for Otitis media to Bilateral ears. Patient is compliant with medications and tolerating well. Patient is set for discharge tomorrow 06/19/16. All needs attended to promptly. Will continue plan of care as ordered.
--- NOTE | 2016-06-18 15:10 | NUR ---
Report given to CAMMIE Mendez who will assume care of patient. Client is in room, sound asleep, easy to arouse, RR16.
[2016-06-18 16:28] VITALS: BP 105/61
[2016-06-18 20:15] VITALS: BP 111/67
--- NOTE | 2016-06-18 23:15 | NUR ---
PRN Medication Administration Patient is verbalizing inability of falling asleep. PRN Trazodone administered. Will continue to monitor.
[2016-06-19 00:25] VITALS: BP 108/50
[2016-06-19 04:27] VITALS: BP 106/64
[2016-06-19] MEDS: METHOCARBAMOL 750 MG TABLET PO PRN (04:28)
--- NOTE | 2016-06-19 04:30 | NUR ---
PRN Medication Administration Patient verbalizing increased muscle spasms of the left hand. PRN Robaxin administered. Will continue to monitor for effectiveness of medication.
[2016-06-19] MEDS: IBUPROFEN 600 MG TABLET PO PRN (05:47)
--- NOTE | 2016-06-19 05:49 | NUR ---
PRN Motrin Administration Patient verbalized increased pain of 5/10 to both right and left wrists. PRN Motrin administered. PRN Robaxin not effective. Will continue to monitor.
--- NOTE | 2016-06-19 06:59 | NUR ---
End of Shift Patient is in her room, awake, alert and verbally responsive. Breathing even and non labored. No signs of pain or discomfort noted. Patient is a 25 year old female, admitted on 06/13/16 for Opiate Dependence. Patient received a 5 day Subutex taper that has completed. Patient verbalizes no known allergies, wishes to be full code, following a regular diet, placed on fall precautions. Patients skin noted with a small abrasion to the left forehead with ongoing treatment of triple ATB BID. Patient also receiving ATB for Otitis media to Bilateral ears. PRN Trazodone and Motrin administered. Patient able to verbalize medication was effective in assisting patient to sleep and minimizing pain to both wrists. Patient was also given PRN Robaxin, per patient medication did not help and I need something else. Patient is set for discharge today 06/19/16. All needs attended to promptly. Will endorse to continue plan of care as ordered.
--- NOTE | 2016-06-19 07:30 | NUR ---
Start of shift note; Patient is AOX4. Patient is a 25 y/o female admitted on 06/13/16 for Heroin/Methamphetamine dependence. Patient was placed on a 5 day Subutex taper, completed taper without any adverse reactions. Patient reported history of Bipolar disorder, schizophrenia, ear infection. NKA, full code status, regular diet. Patient is medically cleared for discharge. All safety measures secured. Will continue to monitor patient.
[2016-06-19 08:00] VITALS: BP 102/60
[2016-06-19 08:10] VITALS: BP 102/60
[2016-06-19] MEDS: FLUTICASONE PROP NASAL SPRAY 16 GM BOTTLE NS SCH (08:10)
[2016-06-19] MEDS: MULTIVITAMINS,THERAPEUTIC TABLET PO SCH (08:10)
[2016-06-19] MEDS: LACTOBACILLUS RHAMNOSUS GG 1 EACH CAPSULE PO SCH (08:10)
[2016-06-19] MEDS: BACLOFEN 20 MG TABLET PO SCH (08:10)
[2016-06-19] MEDS: GABAPENTIN 300 MG CAPSULE PO SCH (08:10)
[2016-06-19] MEDS: CLONIDINE HCL 0.1 MG TABLET PO SCH (08:10)
[2016-06-19] MEDS: CARBAMIDE PEROXIDE OTIC DROP 15 ML BOTTLE EACH EAR SCH (08:11)
[2016-06-19] MEDS: ESCITALOPRAM OXALATE 10 MG TABLET PO SCH (08:11)
[2016-06-19] MEDS: NEOMY/BACITRAC/POLYMI OINT 28.35 GM TUBE TOP SCH (08:11)
[2016-06-19 08:15] LABS: *AMPHETAMINE, URINE NEGATIVE (NEGATIVE); *BARBITURATE, URINE NEGATIVE (NEGATIVE); *CANNABINOID, URINE POSITIVE (NEGATIVE); *COCCAINE, URINE NEGATIVE (NEGATIVE); *OPIATE, URINE NEGATIVE (NEGATIVE); *PHENCYCLIDINE SCREEN,URINE NEGATIVE (NEGATIVE)
--- NOTE | 2016-06-19 09:42 | NUR ---
Discharge note; Patient is AOX4. All valuables, belongings, prescriptions were given to patient. Patient left the hospital at 0942 on 06/19/16. Patient left in a stable condition. Patient completed treatment without any adverse reactions. Met all needs.
[2016-06-21 13:06] LABS: *AMPHETAMINE Positive (.); *CANNABINOID (THC) Positive (.); *CODEINE Negative (Cutoff=300); *HYDROMORPHONE Negative (Cutoff=300); *METHAMPHETAMINE Positive (.); *OPIATES Positive ng/mL (Cutoff=300)
== END 2016-06-19 09:42 | disposition other institution (70) | DRG 895 ==
LOC: SRC 09:39
PROVIDERS: ADMIT Internal Medicine; ATTEND Internal Medicine
PROC: HZ2ZZZZ Detoxification Services for Substance Abuse Treatment (ICD-10-PCS; principal; 2016-06-13)
PROC: HZ31ZZZ Individual Counseling for Substance Abuse Treatment, Behavioral (ICD-10-PCS; 2016-06-18)
DX: F11.23 Opioid dependence with withdrawal (principal); F31.32 Bipolar disorder, current episode depressed, moderate; F10.20 Alcohol dependence, uncomplicated; F15.23 Other stimulant dependence with withdrawal; Y90.9 Presence of alcohol in blood, level not specified; H66.93 Otitis media, unspecified, bilateral; E88.09 Other disorders of plasma-protein metabolism, not elsewhere classified; E07.81 Sick-euthyroid syndrome; E87.6 Hypokalemia; Z91.5 Personal history of self-harm; F12.90 Cannabis use, unspecified, uncomplicated; Z83.3 Family history of diabetes mellitus; Z81.1 Family history of alcohol abuse and dependence; Z81.4 Family history of other substance abuse and dependence; Z59.0 Homelessness; Z81.8 Family history of other mental and behavioral disorders; F50.9 Eating disorder, unspecified; F20.9 Schizophrenia, unspecified; F10.10 Alcohol abuse, uncomplicated; F17.200 Nicotine dependence, unspecified, uncomplicated
CPT/HCPCS: 36415; 70030-TC; 80307; 80324; 80349; 80361; 83735; 84100; 84443; 84703; 85025; 86580; 86592; 86705; 86803; 87340; 87806; 93005; A4663; G6040-TC; J3535; Q0162